=== PATIENT | male | born 1965 | race African-American/Black ===

== ENCOUNTER 2020-12-27 12:00 | Inpatient (IN) | payer OTHER, MEDICAID ==
[~2020-12-27] VITALS: Ht 185.4 cm; Wt 140.1 kg
[2020-12-27] MEDS ORDERED: methylPREDNISolone SOD SUCC 125 MG/2 ML VL IV ONE (12:15)
[2020-12-27] MEDS ORDERED: ZINC SULFATE 220mg CAP or TAB PO ONE (12:15)
[2020-12-27] MEDS ORDERED: ASCORBIC ACID 500 MG TAB PO ONE (12:15)
[2020-12-27] MEDS ORDERED: CHOLECALCIFEROL (VITD3) 2,000 UNIT CAP/TAB PO ONE (12:15)
[2020-12-27] MEDS ORDERED: AZITHROMYCIN 500MG/ 250ML 250 ML IV ONE (13:30)
[2020-12-27 13:54] LABS: Albumin 3.2 g/dL (3.4-5.0); Anion Gap 7 (5-15); Blood Urea Nitrogen 8 mg/dL (7-18); Calcium 8.4 mg/dL (8.5-10.1); Carbon Dioxide 23 mmol/L (21-32); Chloride 109 mmol/L (98-107); Glucose 110 mg/dL (74-106); Potassium 3.7 mmol/L (3.5-5.1); Sodium 139 mmol/L (136-145)
[2020-12-27 13:59] LABS: Basophils # (auto) 0.1 10 ^3/uL (0-0.2); Eosinophils # (auto) 0.1 10 ^3/uL (0-0.8); Hemoglobin 12.6 g/dL (13.5-17.5); Mean Corpuscular Hemoglobin 23.9 pg (28.0-32.0); Mean Corpuscular Hgb Conc. 33.2 g/dL (32.0-36.0); Monocytes # (auto) 0.7 10 ^3/uL (0-1.3); Neutrophils # (auto) 2.7 10 ^3/uL (1.6-8.6); Red Blood Cells 5.28 10^6/uL (4.5-5.90); White Blood Cell 4.7 10^3/uL (4.4-10.8)
[2020-12-27 14:01] LABS: Basophils % (auto) 1.4 % (0.0-2.0); Eosinophils % (auto) 1.2 % (0.0-7.0); Hematocrit 37.9 % (41.0-53.0); Lymphocytes # (auto) 1.2 10 ^3/uL (0.4-5.4); Lymphocytes % (auto) 24.8 % (10.0-50.0); Mean Corpuscular Volume 71.9 fL (80.0-100.0); Monocytes % (auto) 14.5 % (0.0-12.0); Neutrophils % (auto) 58.1 % (37.0-80.0); Nucleated Red Blood Cells % 0.2 %; Red Cell Distribution Width 12.6 % (11.8-14.3)
[2020-12-27 14:03] LABS: Alanine Aminotransferase 64 U/L (16-61); Alkaline Phosphatase 64 U/L (45-117); Aspartate Aminotransferase 41 U/L (15-37); BUN/Creatinine Ratio 8.8; Bilirubin, Total 0.8 mg/dL (0.2-1.0); CRP High Sensitivity 4.96 mg/dL (< 0.3); GFR African American 112 mL/min; GFR Non-African American 93 mL/min; Total Protein 7.8 g/dL (6.4-8.2)
[2020-12-27] MEDS ORDERED: NITROGLYCERIN 0.4 MG SL TAB SL PRN ×2 (18:00→20:30)
[2020-12-27] MEDS ORDERED: MORPHINE SULF INJ 2 MG/ML SYRINGE 1ML IV PRN ×2 (18:00→20:30)
[2020-12-27] MEDS ORDERED: LORazepam 0.5 MG TAB PO PRN (20:30)
[2020-12-27] MEDS ORDERED: ACETAMINOPHEN 500 MG TAB PO PRN (20:30)
[2020-12-27] MEDS ORDERED: MAGNESIUM SULFATE 1GM/100ML 100 ML IV ONE (20:30)
[2020-12-27] MEDS ORDERED: PROMETHAZINE-DM 5 ML ORAL SYRUP PO PRN (20:30)
[2020-12-27] MEDS ORDERED: HYDROcodone-ACET 5/325MG TAB PO PRN (20:30)
[2020-12-27] MEDS ORDERED: LORazepam 2MG/ML-1ML VIAL IV ONE (20:30)
[2020-12-27] MEDS ORDERED: ATORVASTATIN 20 MG TAB PO ONE (20:30)
[2020-12-27] MEDS ORDERED: hydrALAZINE HCL 20 MG/ML VL IV ONE (20:30)
[2020-12-27] MEDS ORDERED: ONDANSETRON HCL 4 MG/2 ML VIAL IV PRN (20:30)
[2020-12-27] MEDS ORDERED: CALCIUM GLUC 1,000mg/50ml-NS 50 ML IV ONE (20:30)
[2020-12-27] MEDS ORDERED: DOCUSATE SOD 100 MG CAP PO PRN (20:30)
[2020-12-27] MEDS ORDERED: hydrALAZINE HCL 20 MG/ML VL IV PRN (20:30)
[2020-12-27] MEDS ORDERED: HYDROmorphone HCL 2 MG/ML VL IV PRN (20:30)
[2020-12-27 21:11] LABS: Albumin 3.1 g/dL (3.4-5.0); Calcium 8.5 mg/dL (8.5-10.1); Magnesium 2.4 mg/dL (1.6-2.6); Potassium 4.1 mmol/L (3.5-5.1)
[2020-12-27 21:14] LABS: BUN/Creatinine Ratio 9.5; Bilirubin, Total 0.8 mg/dL (0.2-1.0); Total Protein 7.8 g/dL (6.4-8.2)
[2020-12-27 21:26] LABS: Thyroid Stimulating Hormone 0.82 uIU/mL (0.358-3.74)
[2020-12-27] MEDS: ALBUTEROL SULF HFA 90MCG INH 200DOSE IN PRN (22:05)
[2020-12-27] MEDS: IPRATROPIUM BROMIDE HFA AER IN SCH (22:05)
[2020-12-27] MEDS: BUDESONIDE (INHALATION) 180 MCG IH IN SCH (22:06)
[2020-12-27 22:09] LABS: Basophils # (auto) 0 10 ^3/uL (0-0.2); Eosinophils # (auto) 0 10 ^3/uL (0-0.8); Eosinophils % (auto) 0.1 % (0.0-7.0); Monocytes # (auto) 0.2 10 ^3/uL (0-1.3); Neutrophils # (auto) 3.2 10 ^3/uL (1.6-8.6)
[2020-12-27 22:11] LABS: Basophils % (auto) 0.3 % (0.0-2.0); Hematocrit 37.2 % (41.0-53.0); Hemoglobin 12.3 g/dL (13.5-17.5); Lymphocytes # (auto) 0.6 10 ^3/uL (0.4-5.4); Lymphocytes % (auto) 14.8 % (10.0-50.0); Mean Corpuscular Hemoglobin 23.9 pg (28.0-32.0); Mean Corpuscular Hgb Conc. 33.1 g/dL (32.0-36.0); Neutrophils % (auto) 80.8 % (37.0-80.0); Nucleated Red Blood Cells % 0.1 %; Red Blood Cells 5.17 10^6/uL (4.5-5.90); Red Cell Distribution Width 12.9 % (11.8-14.3); White Blood Cell 3.9 10^3/uL (4.4-10.8)
[2020-12-27 23:00] VITALS: BP 137/76
[2020-12-27 23:36] VITALS: BP 175/91
[2020-12-27] MEDS: FLORASTOR (S. BOULARDII) 250 MG CAP PO SCH (23:50)
[2020-12-27] MEDS: ENOXAPARIN SOD 40 MG/0.4 ML SYRINGE SC SCH (23:50)
[2020-12-27] MEDS: DOXYCYCLINE 100MG/250ML 250 ML IV SCH (23:50)
[2020-12-28] MEDS ORDERED: TAMS0.4C36 PO (00:28)
[2020-12-28] MEDS ORDERED: METO-159 PO (00:28)
[2020-12-28] MEDS ORDERED: GABA300C10 PO (00:28)
[2020-12-28] MEDS ORDERED: DOCU100T15 PO (00:28)
[2020-12-28] MEDS ORDERED: NAPR500T31 PO (00:28)
[2020-12-28] MEDS ORDERED: POLY33504 PO (00:28)
[2020-12-28 05:20] VITALS: BP 140/64
[2020-12-28] MEDS: ALBUTEROL SULF HFA 90MCG INH 200DOSE IN PRN ×3 (06:13→21:56)
[2020-12-28] MEDS: IPRATROPIUM BROMIDE HFA AER IN SCH ×4 (06:13→21:56)
[2020-12-28] MEDS: BUDESONIDE (INHALATION) 180 MCG IH IN SCH ×2 (06:13→21:57)
[2020-12-28 06:17] LABS: Basophils # (auto) 0 10 ^3/uL (0-0.2); Eosinophils # (auto) 0 10 ^3/uL (0-0.8); Neutrophils # (auto) 4.8 10 ^3/uL (1.6-8.6)
[2020-12-28 06:18] LABS: Basophils % (auto) 0.2 % (0.0-2.0); Hematocrit 36.2 % (41.0-53.0); Hemoglobin 11.7 g/dL (13.5-17.5); Lymphocytes # (auto) 0.6 10 ^3/uL (0.4-5.4); Lymphocytes % (auto) 10.9 % (10.0-50.0); Mean Corpuscular Hemoglobin 23.6 pg (28.0-32.0); Mean Corpuscular Hgb Conc. 32.3 g/dL (32.0-36.0); Mean Corpuscular Volume 73.1 fL (80.0-100.0); Monocytes # (auto) 0.4 10 ^3/uL (0-1.3); Neutrophils % (auto) 81.9 % (37.0-80.0); Nucleated Red Blood Cells % 0.1 %; Red Blood Cells 4.95 10^6/uL (4.5-5.90); Red Cell Distribution Width 12.8 % (11.8-14.3); White Blood Cell 5.9 10^3/uL (4.4-10.8)
[2020-12-28 06:28] LABS: INR 1.04 (0.9-1.15); Partial Thromboplastin Time 29.9 sec (23.0-31.2)
[2020-12-28 06:38] LABS: Chloride 109 mmol/L (98-107); Sodium 138 mmol/L (136-145)
[2020-12-28 06:49] LABS: Alanine Aminotransferase 69 U/L (16-61); Albumin 3.1 g/dL (3.4-5.0); Alkaline Phosphatase 60 U/L (45-117); Anion Gap 7 (5-15); Aspartate Aminotransferase 39 U/L (15-37); BUN/Creatinine Ratio 10.5; Bilirubin, Total 0.6 mg/dL (0.2-1.0); Blood Urea Nitrogen 10 mg/dL (7-18); Calcium 8.5 mg/dL (8.5-10.1); Carbon Dioxide 22 mmol/L (21-32); GFR African American 107 mL/min; GFR Non-African American 88 mL/min; Glucose 168 mg/dL (74-106); Magnesium 2.4 mg/dL (1.6-2.6); Phosphorus 1.8 mg/dL (2.5-4.90); Total Protein 7.7 g/dL (6.4-8.2); Uric Acid 4.8 mg/dL (3.5-7.2)
[2020-12-28 09:00] VITALS: BP 147/81
[2020-12-28] MEDS: DexAMETHasone SOD PHOS 10MG/1ML VIAL INJ IV SCH (09:32)
[2020-12-28] MEDS: ASPirin 81 mg TAB PO SCH (09:32)
[2020-12-28] MEDS: DOXYCYCLINE 100MG/250ML 250 ML IV SCH ×2 (09:32→21:38)
[2020-12-28] MEDS: FLORASTOR (S. BOULARDII) 250 MG CAP PO SCH ×2 (09:32→21:37)
[2020-12-28] MEDS: ASCORBIC ACID 1,000 MG TAB PO SCH (09:32)
[2020-12-28] MEDS: ZINC SULFATE 220mg CAP or TAB PO SCH (09:32)
[2020-12-28] MEDS: ENOXAPARIN SOD 40 MG/0.4 ML SYRINGE SC SCH ×2 (09:33→21:37)
[2020-12-28] MEDS: CHOLECALCIFEROL (VITD3) 2,000 UNIT CAP/TAB PO SCH (09:33)
[2020-12-28] MEDS ORDERED: REMDESIVIR PER PHARMACY 0 ML IV SCH (10:30)
[2020-12-28] MEDS ORDERED: FUROSEMIDE 20 MG/2 ML VIAL IV ONE (11:30)
[2020-12-28 13:00] VITALS: BP_SYST 148; BP_DIAS 65; BP_DIAS 68
[2020-12-28] MEDS ORDERED: REMDESIVIR 200 MG in NS 210ml LOADING DOSE ADULT IV ONE (15:00)
[2020-12-28 17:00] VITALS: BP 132/84
[2020-12-28] MEDS: ATORVASTATIN 20 MG TAB PO SCH (21:37)
[2020-12-28 22:00] VITALS: BP 134/69
[2020-12-29 05:00] VITALS: BP 114/58
[2020-12-29] MEDS: BUDESONIDE (INHALATION) 180 MCG IH IN SCH (05:49)
[2020-12-29] MEDS: IPRATROPIUM BROMIDE HFA AER IN SCH ×3 (05:49→18:00)
[2020-12-29] MEDS: ALBUTEROL SULF HFA 90MCG INH 200DOSE IN PRN ×2 (05:50→11:12)
[2020-12-29 08:00] VITALS: BP 129/75
[2020-12-29] MEDS: DexAMETHasone SOD PHOS 10MG/1ML VIAL INJ IV SCH (10:38)
[2020-12-29] MEDS: CHOLECALCIFEROL (VITD3) 2,000 UNIT CAP/TAB PO SCH (10:39)
[2020-12-29] MEDS: DOXYCYCLINE 100MG/250ML 250 ML IV SCH ×2 (10:39→21:28)
[2020-12-29] MEDS: ZINC SULFATE 220mg CAP or TAB PO SCH (10:39)
[2020-12-29] MEDS: FLORASTOR (S. BOULARDII) 250 MG CAP PO SCH ×2 (10:39→21:29)
[2020-12-29] MEDS: ASCORBIC ACID 1,000 MG TAB PO SCH (10:39)
[2020-12-29] MEDS: ENOXAPARIN SOD 40 MG/0.4 ML SYRINGE SC SCH ×2 (10:39→21:29)
[2020-12-29] MEDS: ASPirin 81 mg TAB PO SCH (10:39)
[2020-12-29 12:00] VITALS: BP 134/73
[2020-12-29] MEDS ORDERED: REMDESIVIR 100mg 100 MG in SODIUM CHL 0.9% 230 ML IV SCH (15:00)
[2020-12-29 16:00] VITALS: BP 151/82
[2020-12-29] MEDS: ATORVASTATIN 20 MG TAB PO SCH (21:29)
[2020-12-29 22:00] VITALS: BP 149/77
[2020-12-30] MEDS: BUDESONIDE (INHALATION) 180 MCG IH IN SCH ×2 (00:33→07:40)
[2020-12-30] MEDS: IPRATROPIUM BROMIDE HFA AER IN SCH ×2 (00:34→07:40)
[2020-12-30] MEDS: ALBUTEROL SULF HFA 90MCG INH 200DOSE IN PRN ×2 (00:34→07:40)
[2020-12-30 04:30] VITALS: BP 154/68
[2020-12-30 08:00] VITALS: BP 132/63
[2020-12-30] MEDS ORDERED: DOXYCYCLINE 100 MG TAB/CAP PO SCH (10:00)
[2020-12-30] MEDS: DexAMETHasone SOD PHOS 10MG/1ML VIAL INJ IV SCH (10:06)
[2020-12-30] MEDS: ZINC SULFATE 220mg CAP or TAB PO SCH (10:07)
[2020-12-30] MEDS: FLORASTOR (S. BOULARDII) 250 MG CAP PO SCH (10:07)
[2020-12-30] MEDS: CHOLECALCIFEROL (VITD3) 2,000 UNIT CAP/TAB PO SCH (10:07)
[2020-12-30] MEDS: ASCORBIC ACID 1,000 MG TAB PO SCH (10:07)
[2020-12-30] MEDS: ENOXAPARIN SOD 40 MG/0.4 ML SYRINGE SC SCH (10:07)
[2020-12-30] MEDS: ASPirin 81 mg TAB PO SCH (10:07)
[2020-12-30] MEDS ORDERED: DEX4T PO (10:21)
[2020-12-30] MEDS ORDERED: FAMO20TA10 PO (10:21)
[2020-12-30] MEDS ORDERED: DOXY-286 PO (10:21)
[2020-12-30] MEDS ORDERED: ALBUAER3 IN (10:21)
[2020-12-30 12:00] VITALS: BP 138/76
[2020-12-30] MEDS ORDERED: DEXT1SYP9 PO (12:07)
== END 2020-12-30 13:00 | disposition home or self-care (01) | DRG 177 ==
LOC: EDUNIT# 12:00 → ER 12:00 → EDBD 12:00 → TELE 20:21 → TELE-EAST 22:47
PROVIDERS: ADMIT Hospitalist; ATTEND Hospitalist
DX: U07.1 COVID-19 (principal); J96.00 Acute respiratory failure, unspecified whether with hypoxia or hypercapnia; J12.82 Pneumonia due to coronavirus disease 2019; E87.3 Alkalosis; I16.9 Hypertensive crisis, unspecified; Z68.41 Body mass index [BMI] 40.0-44.9, adult; R79.82 Elevated C-reactive protein (CRP); E66.01 Morbid (severe) obesity due to excess calories; R74.01 Elevation of levels of liver transaminase levels; F17.210 Nicotine dependence, cigarettes, uncomplicated; K59.00 Constipation, unspecified; F41.9 Anxiety disorder, unspecified; I10 Essential (primary) hypertension; E78.5 Hyperlipidemia, unspecified; Z79.899 Other long term (current) drug therapy; Z80.1 Family history of malignant neoplasm of trachea, bronchus and lung; Z82.49 Family history of ischemic heart disease and other diseases of the circulatory system; Z83.3 Family history of diabetes mellitus
CPT/HCPCS: 36415; 36600; 71045; 80053; 80061; 82306; 82728; 82805; 83036; 83605; 83615; 83735; 83880; 84100; 84443; 84484; 84550; 85025; 85379; 85610; 85730; 86141; 87040; 87426; 93005; 94640; 96365; 96366; 96375; G0378; J1100; J3490